=== PATIENT | female | born 1950 | race Asian ===

== ENCOUNTER 2023-12-06 08:13 | Outpatient (REF) | payer MEDICARE, SELFPAY ==
--- NOTE | ~2023-12-06 | XR_ITS ---
EXAMINATION: XR KNEE, LEFT XR KNEE AP STANDING CLINICAL INFORMATION: Bilateral knee pain. COMPARISON: None TECHNIQUE: Lateral and axial views of the left knee are submitted. AP bilateral standing view of the knees was obtained. FINDINGS: Prosthetic components of the bilateral total knee arthroplasties are appropriately aligned, without periprosthetic fracture or abnormal lucency. No component migration. No joint effusion. XR/XR knee LT 3V IMPRESSION: Appropriate alignment of the bilateral total knee arthroplasties, without evidence of complications. Electronically signed by: Twan Burnham MD 01/03/2024 07:10 PM EDT
--- NOTE | ~2023-12-06 | XR_ITS ---
EXAMINATION: XR KNEE, LEFT XR KNEE AP STANDING CLINICAL INFORMATION: Bilateral knee pain. COMPARISON: None TECHNIQUE: Lateral and axial views of the left knee are submitted. AP bilateral standing view of the knees was obtained. FINDINGS: Prosthetic components of the bilateral total knee arthroplasties are appropriately aligned, without periprosthetic fracture or abnormal lucency. No component migration. No joint effusion. XR/XR knee RT 1V IMPRESSION: Appropriate alignment of the bilateral total knee arthroplasties, without evidence of complications. Electronically signed by: Twan Burnham MD 01/03/2024 07:10 PM EDT
== END 2023-12-06 08:14 | disposition home or self-care (01) ==
LOC: HO.HOSX 08:13
DX: T84.84XA Pain due to internal orthopedic prosthetic devices, implants and grafts, initial encounter (principal); Z96.653 Presence of artificial knee joint, bilateral
CPT/HCPCS: 73560; 73562; 99202

== ENCOUNTER 2023-12-06 15:19 | Outpatient (AMB) | payer MEDICARE, SELFPAY ==
--- NOTE | 2023-12-06 15:34 | A.OFFVIS_ITS ---
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 Patient reports about 3 weeks ago is when her sharp pain worsened in the left knee. She is no longer having stabbing pain however she says she is still having pains on the anterior and posterior aspect of her left knee. Her B/L knees feel stiff but the pain is worse on left side. She says she takes turns on each knee when she bears weight to avoid exacerbation of symptoms and thinks she has favored the left knee longer. She expresses pain with gait initiation, prolonged walking and standing. He left and right knee were swollen but she says she ices them to help bring down the swelling. She has tried Tylenol Arthritis and found mild relief, when it is very bad she takes tramadol with the Tylenol. Denies recent injury to knees. 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 Morgan at [facility], and is also status post right TKA on 01/05/2023 at [facility] who presents for evaluation of bilateral knee pain, ongoing since prior to surgery. The patient reports that the pain and stiffness she is experiencing is worse in the left. The patient reports that she continues to experience significant pain in her bilateral knees since DOS, and she feels that this limits her physical activity level. The patient reports that she was concerned something was wrong with the implants, as she lives in a [facility] community and she was the only person she knew with knee replacements who continues to experience pain this far postoperatively. The patient states that she ?switches the knee she puts weight on cause ?to prevent exacerbation of symptoms on the contralateral knee. Patient reports that when she does experience pain, it is in both the anterior and posterior aspects of bilateral knees. She reports that her knees do swell, but that she ices them and rests them and it improves. Patient has tried Tylenol and found [id number] relief. Denies any numbness or tingling in the distal bilateral lower extremities. No other acute complaints or concerns this time. 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 [employer] Review of Systems Const All systems reviewed & are unremarkable except as noted in HPI and below Physical Exam Vital Signs: BMI result Body Mass Index 19.3 Extrem Other: On inspection, there are well-healed surgical scars on the anterior aspect of bilateral knees No edema, erythema, ecchymosis noted No lacerations, abrasions, open areas noted No evidence of infection noted Patient reports very mild tenderness to palpation at the joint line of bilateral knees No other tenderness to palpation noted Patient is able to extend to 5-10 degrees and flex to 120 degrees without difficulty Distal sensation intact Capillary refill brisk Results Reviewed Results Reviewed: X-rays obtained in the office today and independently reviewed by me, Ru Valdez PA-C, demonstrate bilateral knees status post TKA, with implants in place and in satisfactory clinical alignment. Assessment & Plan Assessment & Plan (1) Chronic knee pain after total replacement of both knee joints: Code(s): M25.561 - Pain in right knee; M25.562 - Pain in left knee; G89.28 - Other chronic postprocedural pain; Z96.653 - Presence of artificial knee joint, bilateral Category: Medical Plan 1. Bilateral chronic knee pain status post TKA Dates of surgery: 12/10/21 on the left, 01/05/2023 on the right Patient and case discussed with Dr. Morgan, who was not available and see the patient in the office at this time, and a collaborative treatment plan was formed: At this time, the patient will be referred to Dr. Mcguire in pain management for management of chronic knee pain status post bilateral TKA Patient is informed that approximately 15-20% of knee replacement patient has continued to experience chronic pain, and that pain management might be able to really help her with treatment such as injections for this chronic pain Patient is amenable to this plan Patient will follow-up p.r.n. with any acute concerns Orders: Orders XR knee LT 3V 12/06/23 M25.562 - Pain in left knee XR knee RT 1V 12/06/23 M25.561 - Pain in right knee Referrals Pain Management Referral G89.28 - Other chronic postprocedural pain, M25.561 - Pain in right knee, M25.562 - Pain in left knee, Z96.653 - Presence of artificial knee joint, bilateral Coding Level of Care Code New Pt Level 3 (09408) Diagnoses Chronic knee pain after total replacement of both knee joints M25.561; M25.562; G89.28; Z96.653
[2023-12-06 15:35] VITALS: BMI 19.3
== END 2023-12-06 16:08 | disposition home or self-care (01) ==
PROVIDERS: PCP Internal Medicine
DX: M25.561 Pain in right knee (principal); M25.562 Pain in left knee; G89.28 Other chronic postprocedural pain; Z96.653 Presence of artificial knee joint, bilateral
CPT/HCPCS: 99203

== ENCOUNTER 2024-01-31 09:53 | Outpatient (AMB) | payer MEDICARE, SELFPAY ==
[2024-01-31 10:05] VITALS: BP 113/55; PULSE 52; RESP 16; O2SAT 98; BMI 19.5
--- NOTE | 2024-01-31 10:05 | A.OFFVIS_ITS ---
Vital Signs 01/31/24 10:05 Height 5 ft 3 in Weight 110 lb BMI 19.5 BP 113/55 L Blood Pressure Location Lt brachial Position Sitting Respiration 16 Pulse 52 Pulse Source Pulse Oximeter Pulse Oximetry (%) 98 Oxygen Delivery Method Room Air Intake Visit Reasons: BILATERAL KNEE PAIN Allergies No Known Allergies Allergy (Verified 01/31/24 10:07) Medication List - Last Reconciled 01/31/24 by Ila Hoang LPN acetaminophen 1,000 mg PO Q6H PRN atenolol 50 mg PO BID cholecalciferol (vitamin D3) 125 mcg PO DAILY diltiazem HCl ER (DILT-XR) 240 mg PO DAILY gabapentin 100 mg PO TID glucosamine-chondroitin 250-200 mg (Osteo Bi-Flex) 2 tabs PO TID lorazepam 1 mg PO DAILY PRN tramadol 50 mg PO DAILY PRN HPI HPI BILATERAL KNEE PAIN: Details: 73-year-old female who presents today for evaluation of bilateral knee pain. Patient reports bilateral knee pain with worsening pain in the left knee since DOS, localised to anterior and posterior aspect of her left knee. She feels stiff and tight in the both knees and her pain worsens with prolonged walking and standing. She states she favors each knee at a time while bearing weight to avoid exacerbation. She reports she experiences sharp pain in the knees at times which occurs randomly, and recalls her knee was very painful yesterday. She does ice compresses and rest when she has swelling in the knees. She has tried Tylenol Arthritis with mild relief and takes tramadol with the Tylenol for worsening pain. Denies any recent trauma to the knees. The pain interfers with her physical activity. She was wondering if something was wrong with the implants as she continues to have pain following the surgery. She lives in a senior care community. She is s/p left TKA on 11/30/[address] Morgan at [facility] and right TKA on 01/05/[address] [facility]. She was seen by Dr. Morgan on 12/06/2023, who referred to pain management for further management for chronic pain in the knees. 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 Alert and oriented. Mood and affect appropriate. Follows and participates in conversation appropriately. Respiratory effort is unlabored. Able to transition from sit to stand unassisted. Ambulates with bilaterally normal heel strike and toe off. She has well healed scars on both her knees. ROM is intact. There is a pain around the patella region on both sides. Results Reviewed Results Reviewed: Date: 12/06/23 EXAMINATION: XR KNEE, LEFT XR KNEE AP STANDING FINDINGS: Prosthetic components of the bilateral total knee arthroplasties are appropriately aligned, without periprosthetic fracture or abnormal lucency. No component migration. No joint effusion. IMPRESSION: Appropriate alignment of the bilateral total knee arthroplasties, without evidence of complications. Assessment & Plan Assessment & Plan (1) Chronic knee pain after total replacement of both knee joints: Code(s): M25.561 - Pain in right knee; M25.562 - Pain in left knee; G89.28 - Other chronic postprocedural pain; Z96.653 - Presence of artificial knee joint, bilateral Category: Medical Plan I had a long discussion with her going over both temporary and permanent nerve stimulation therapies for refractory pain following total knee arthroplasty which she has had on both sides. I provided her with brochures and educated her about the details of temporary nerve stimulator placement for the knee. We will start with the right side and then we will repeat it on the left side, if she finds it helpful. If there is no relief from the temporary placement, we may have to consider a permanent implant. We will file a PA for insurance authorization and then proceed with temporary PNS trial, right saphenous nerve with ultrasound guided placement. Scribed for Dr. Mcguire by nel Abdi scribe, on 01/31/2024. I, Dr. Mcguire, have personally reviewed and agree with the information entered by the scribe. Coding Level of Care Code New Pt Level 4 (38584) Diagnoses Chronic knee pain after total replacement of both knee joints M25.561; M25.562; G89.28; Z96.653
== END 2024-01-31 10:40 | disposition home or self-care (01) ==
PROVIDERS: PCP Internal Medicine; Visit Provider Internal Medicine
DX: M25.561 Pain in right knee (principal); M25.562 Pain in left knee; G89.28 Other chronic postprocedural pain; Z96.653 Presence of artificial knee joint, bilateral
CPT/HCPCS: 99204

== ENCOUNTER → 2024-01-31 09:53 | Outpatient (BNVA) | payer MEDICARE, SELFPAY | PROVIDERS: PCP Internal Medicine; Visit Provider Internal Medicine | DX: M25.562 Pain in left knee (principal); M25.561 Pain in right knee; G89.28 Other chronic postprocedural pain; Z96.653 Presence of artificial knee joint, bilateral | CPT/HCPCS: 99202 ==